=== PATIENT | male | born 1930 | race Hispanic/Latino ===

== ENCOUNTER 2017-08-11 15:18 | Inpatient (IN) | payer BC, MEDICARE ==
--- NOTE | 2017-08-11 16:11 | ED PDOC ---
Arrival/HPI - General Chief Complaint: Weakness/Neurological Deficit Time Seen by Provider: 08/11/17 15:38 Historian: Patient, Family - History of Present Illness Narrative History of Present Illness (Text): 08/11/17 16:07 87-year-old male with a history of hypertension and CHF presents today with generalized weakness, urinary frequency, cough, fevers. Patient was seen in the primary care physician's office today and sent to the emergency room for evaluation. Patient complaining of fevers and chills. States has had cough for 2 months. Family states patient was recently hospitalized last week for cellulitis in the left lower extremity. Patient denies headache. No medications have been taken for fever at home. Complaining of dyspnea on exertion. Symptom Onset: Gradual Symptom Course: Worsening Quality: Aching Past Medical History - Provider Review Nursing Documentation Reviewed: Yes - Travel History Have you recently traveled outside [place] w/in the past 3 mons?: No - Infectious Disease Hx of Infectious Diseases: None - Tetanus Immunization Tetanus Immunization: Unknown - Cardiac Hx Hypertension: Yes - Pulmonary Hx Pneumonia: Yes - Neurological HX Cerebrovascular Accident: Yes - Endocrine/Metabolic Hx Diabetes Mellitus Type 2: Yes - Hematological/Oncological Hx Anemia: Yes - Musculoskeletal/Rheumatological Hx Arthritis: Yes - Gastrointestinal Hx Gastroesophageal Reflux: Yes - Psychiatric Hx Substance Use: No - Surgical History Hx Appendectomy: Yes - Anesthesia Hx Anesthesia Reactions: No Hx Malignant Hyperthermia: No - Suicidal Assessment Feels Threatened In Home Enviroment: No Family/Social History - Physician Review Nursing Documentation Reviewed: Yes Family/Social History: Unknown Family HX Smoking Status: Former Smoker Hx Alcohol Use: No Hx Substance Use: No Allergies/Home Meds Allergies/Adverse Reactions: Allergies No Known Allergies Allergy (Verified 08/11/17 15:34) Home Medications: Home Meds Medication Instructions Recorded Confirmed Unobtainable 08/11/17 08/11/17 Review of Systems - Review of Systems Constitutional: Fatigue, Fevers ENT: Sinus Congestion Respiratory: SOB, Cough Cardiovascular: absent: Chest Pain, Palpitations Gastrointestinal: absent: Abdominal Pain, Nausea, Vomiting Genitourinary Male: Frequency. absent: Hematuria Musculoskeletal: absent: Back Pain, Neck Pain Skin: Cellulitis. absent: Rash Neurological: absent: Headache, Dizziness Physical Exam Vital Signs Reviewed: Yes Vital Signs Temp Pulse Resp BP Pulse Ox 08/11/17 16:36 105 H 183/93 H 98 08/11/17 15:48 101.2 F H 108 H 24 180/94 H 98 08/11/17 15:43 30 H 91 L Temperature: Febrile Blood Pressure: Hypertensive Pulse: Tachycardic Respiratory Rate: Normal Appearance: Positive for: Well-Appearing, Non-Toxic Pain Distress: None Mental Status: Positive for: Alert and Oriented X 3 - Systems Exam Head: Present: Atraumatic Mouth: Present: Dry. No: Drooling Neck: Present: Normal Range of Motion, Trachea Midline. No: Meningeal Signs Respiratory/Chest: Present: Decreased Breath Sounds Cardiovascular: Present: Murmurs, Tachycardic Abdomen: No: Tenderness, Distention, Rebound, Guarding Genitourinary Male: Present: Erythema, Other (there is non tender erythema noted with the scrotum without swelling. + erythema extending to the groin with excoriations within the right inguinal region. chaparoned by dr. rosado). No: Normal External Genitalia, Testicle Tenderness, Testicle Swelling Upper Extremity: Present: Normal Inspection, Normal ROM Lower Extremity: Present: Edema, Normal ROM, Tenderness, Erythema (Left lower leg erythema over anterior aspect of left lower leg. 2+ pitting edema bilaterally) Neurological: Present: GCS=15, Speech Normal Skin: Present: Warm, Dry Psychiatric: Present: Alert, Oriented x 3 Medical Decision Making ED Course and Treatment: 08/11/17 16:13 87-year-old male with generalized weakness fatigue fevers and tachycardia with cough and urinary frequency Tylenol 975 by mouth given for fever CBC: hgb;9.4 CMP: bun;24/ cr: 1.3 BNP: 2270 Troponin: 0.06 EKG shows sinus tachycardia at [address] elevations Chest x-ray: ? right upper lobe infiltrate. Lactate: 1.5 rapid flu: negative UA; negative blood and urine cultures pending 08/11/17 17:23 pt started on vancomycin and zosyn iv for cellulitis of left leg, possible pneumonia pt was evaluated by dr. rosado case discussed with dr. nolen; accepts admission to [facility]; he states patient has lost a lot of weight; he would like to hold of on lasix at this time. impression; fever, cellulitis, pneumonia, elevated bnp, rash, groin admit to tele. dr. nolen - Lab Interpretations Lab Results: 08/11/17 16:15 08/11/17 16:15 Lab Results 08/11/17 17:50: Urine Color Yellow, Urine Appearance Clear, Urine pH 6.0, Ur Specific [place] 1.025, Urine Protein 100 H, Urine Glucose (UA) Negative, Urine Ketones Negative, Urine Blood Negative, Urine Nitrate Negative, Urine Bilirubin Negative, Urine Urobilinogen 0.2, Ur Leukocyte Esterase Negative, Urine RBC Pending, Urine WBC Pending 08/11/17 16:26: Influenza Typ A,B (EIA) Negative for flu a/b 08/11/17 16:15: Sodium 136, Chloride 95 L, Potassium 3.4 L, Carbon Dioxide 30, Anion Gap 14, BUN 24 H, Creatinine 1.3, Est GFR ( Amer) > 60, Est GFR ( Non-Af Amer) 52, Random Glucose 220 H, Calcium 9.4, Phosphorus 2.5, Magnesium 1.7, Total Bilirubin 0.8, AST 33, ALT 38, Alkaline Phosphatase 90, Lactate Dehydrogenase 446, Total Creatine Kinase 64, Troponin I 0.06 D, NT-Pro-B Natriuret Pep 2270 H, Total Protein 8.2, Albumin 4.1, Globulin 4.1, Albumin/ Globulin Ratio 1.0 L 08/11/17 16:15: pO2 43, VBG pH 7.42, VBG pCO2 50.0, VBG HCO3 32.4 H, VBG Total CO2 33.9 H, VBG O2 Sat (Calc) 81.5 H, VBG Base Excess 6.6 H, VBG Potassium 3.4 L , Sodium 136.0, Chloride 97.0 L, Glucose 225 H, Lactate 1.5, FiO2 21.0, Venous Blood Potassium 3.4 L 08/11/17 16:15: PT 14.6 H, INR 1.33 H, APTT 29.0 08/11/17 16:15: WBC 9.0, RBC 4.37, Hgb 9.4 L, Hct 32.7 L, MCV 74.8 L, MCH 21.5 L , MCHC 28.7 L, RDW 21.9 H, Plt Count 356, MPV 10.4, Gran % 83.7 H, Lymph % (Auto ) 6.6 L, [place] % (Auto) 8.7 H, Eos % (Auto) 0.1 L, Baso % (Auto) 0.9, Gran # 7.52 H, Lymph # 0.6 L, [place] # 0.8 H, Eos # 0.0, Baso # 0.08 - RAD Interpretation Radiology Orders: 08/11/17 15:49 CHEST PORTABLE [RAD] Stat - Medication Orders Current Medication Orders: Discontinued Medications Acetaminophen (Tylenol 325mg Tab) 975 mg PO STAT STA Stop: 08/11/17 15:58 Last Admin: 08/11/17 16:20 Dose: 975 mg MAR Pain/Vitals Document 08/11/17 16:20 OCS (Rec: 08/11/17 16:24 OCS [id number]) Pain Reassessment Is This A Pain ReAssessment? Yes Sleep Is patient sleeping during reassessment? No Presence of Pain Presence of Pain Yes Vancomycin HCl (Vancomycin 1gm) 1 gm in 250 mls @ 167 mls/hr IVPB STAT STA PRN Reason: Protocol Stop: 08/11/17 18:01 Piperacillin Sod/Tazobactam Sod (Zosyn 3.375 In Ns 100ml) 100 mls @ 200 mls/hr IVPB STAT STA PRN Reason: Protocol Stop: 08/11/17 17:01 Last Admin: 08/11/17 17:09 Dose: 200 mls/hr eMAR Start Stop Document 08/11/17 17:09 OCS (Rec: 08/11/17 17:11 OCS [id number]) Intravenous Solution Start Date 08/11/17 Start Time 17:11 End Date 08/11/17 End time 17:41 Total Infusion Time 30 Disposition/Present on Arrival - Present on Arrival Any Indicators Present on Arrival: No History of DVT/PE: No History of Uncontrolled Diabetes: No Urinary Catheter: No History of Decub. Ulcer: No History Surgical Site Infection Following: None - Disposition Have Diagnosis and Disposition been Completed?: Yes Diagnosis: Pneumonia, Fever, CHF (congestive heart failure), Rash of groin, Cellulitis, leg Disposition: HOSPITALIZED Disposition Time: 17:45 Patient Plan: Telemetry Patient Problems: Current Active Problems Problem Status Onset CHF (congestive heart failure) Acute Cellulitis, leg Acute Fever Acute Pneumonia Acute Rash of groin Acute Condition: FAIR Discharge Instructions (ExitCare): Heart Failure (ED), Cellulitis (ED) Forms: [employer] (Croatian)
[2017-08-11 16:27] LABS: VENOUS BLOOD GAS BASE EXCESS 6.6 mmol/L (0.0-2.0); VENOUS BLOOD PH 7.42 (7.32-7.43)
[2017-08-11] MEDS ORDERED: Piperacillin/Tazobact 3.375 gm 100 ML IVPB STA (16:32)
[2017-08-11] MEDS ORDERED: Vancomycin 1gm in NS 250ml 1 GM/250 ML BAG IVPB STA (16:32)
[2017-08-11 16:36] LABS: ALKALINE PHOSPHATASE 90 U/L (38-126); ALT/SGPT 38 U/L (7-56); AST/SGOT 33 U/L (17-59); BILIRUBIN,TOTAL 0.8 mg/dL (0.2-1.3); BLOOD UREA NITROGEN 24 mg/dL (7-21); CALCIUM 9.4 mg/dL (8.4-10.5); CARBON DIOXIDE 30 mmol/L (21-33); CHLORIDE 95 mmol/L (98-107); GFR AFRICAN-AMERICAN > 60; GLUCOSE,RANDOM 220 mg/dL (70-110); MAGNESIUM 1.7 mg/dL (1.7-2.2); PHOSPHOROUS 2.5 mg/dL (2.5-4.5); POTASSIUM 3.4 mmol/L (3.6-5.0); SODIUM 136 mmol/L (132-148); TOTAL PROTEIN 8.2 g/dL (5.8-8.3)
[2017-08-11 16:39] LABS: BASO # 0.08 K/mm3 (0.0-2.0); BASO % 0.9 % (0.0-3.0); EOS % 0.1 % (1.5-5.0); GRAN # 7.52 (1.4-6.5); GRAN % 83.7 % (50.0-68.0); HEMATOCRIT 32.7 % (42.0-52.0); LYMPH # 0.6 (1.2-3.4); LYMPH % 6.6 % (22.0-35.0); MEAN CELL VOLUME 74.8 fl (80.0-105.0); MEAN CORPUSCULAR HEMOGLOBIN 21.5 pg (25.0-35.0); MEAN CORPUSCULAR HGB CONC 28.7 g/dl (31.0-37.0); MEAN PLATELET VOLUME 10.4 fl (7.0-11.0); MONO # 0.8 (0.1-0.6); MONO % 8.7 % (1.0-6.0); RED CELL DISTRIBUTION WIDTH 21.9 % (11.5-14.5)
[2017-08-11 16:47] LABS: INR 1.33 (0.93-1.08); TROPONIN I 0.06 ng/mL
--- NOTE | 2017-08-11 17:45 | RAD ---
HISTORY: Sepsis Patient COMPARISON: Chest x-ray performed 01/14/14 TECHNIQUE: Chest, one view. FINDINGS: LUNGS: Medial right upper lobe opacity may reflect consolidation such as pneumonia and/or pleural thickening/ fluid. Correlate clinically. The patient's chin and overlying bony structures as well as possibility of tortuous vasculature limit evaluation of this region. Correlate clinically. No definite pneumothorax . CARDIOVASCULAR: Cardiomegaly. OSSEOUS STRUCTURES: Degenerative changes. VISUALIZED UPPER ABDOMEN: Unremarkable. OTHER FINDINGS: None. IMPRESSION: Medial right upper lobe opacity may reflect consolidation (such as pneumonia) and/or pleural thickening/ fluid. Correlate clinically. The patient's chin and overlying bony structures as well as possibility of tortuous vasculature limits evaluation of this region. Correlate clinically. Recommend follow-up upon completion of treatment for acute symptoms in order to exclude possibility of underlying neoplasm. Cardiomegaly.
[2017-08-11 18:07] LABS: URINE BILIRUBIN NEGATIVE (NEGATIVE); URINE BLOOD NEGATIVE (NEGATIVE); URINE COLOR YELLOW (YELLOW); URINE GLUCOSE (UA) NEGATIVE (NEGATIVE); URINE KETONE NEGATIVE (NEGATIVE); URINE LEUKOCYTE ESTERASE NEGATIVE Leu/uL (NEGATIVE); URINE PROTEIN 100 mg/dL (<30 mg/dL); URINE UROBILINOGEN 0.2 E.U./dL (<1 E.U./dL)
[2017-08-11 18:08] LABS: URINE APPEARANCE CLEAR (CLEAR)
[2017-08-11 18:16] LABS: URINE BACTERIA TRACE (NEG); URINE EPITHELIAL CELLS 0 - 2 /hpf (0-5); URINE RBC 0 - 2 /hpf (0-2)
--- NOTE | 2017-08-11 18:35 | CARD ---
APPROVED REPORT EKG Measurement Heart [id number] <Conclusion> Sinus tachycardia Junctional ST depression, probably normal Borderline ECG
[2017-08-11] MEDS ORDERED: Potassium Chloride 20 mEq ER Tab PO STA (18:53)
[2017-08-11 21:26] VITALS: BMI 27.8
[2017-08-11] MEDS ORDERED: Pneumococcal 23-Valent Vaccine IM ONE (21:28)
[2017-08-11] MEDS ORDERED: Influenza Vaccine 60 mcg/0.5 mL SYR (4YR UP) IM ONE (21:28)
[2017-08-11] MEDS: Insulin Reg-LOW-Coverage SC SCH (22:00)
[2017-08-11] MEDS: Vancomycin 500mg in NS 500 MG/100 ML BAG IVPB SCH (23:07)
[2017-08-12] MEDS: Piperacillin/Tazobact 3.375 gm 100 ML IVPB SCH ×2 (00:13→05:16)
[2017-08-12] MEDS ORDERED: Nitroglycerin 2% Ointment Foilpak UD TOP STA (02:06)
[2017-08-12] MEDS ORDERED: Levalbuterol 1.25 MG/3 ML Inhal Soln UD IH STA (02:09)
--- NOTE | 2017-08-12 02:15 | CP.PCM.PN ---
Subjective - Date & Time of Evaluation Date of Evaluation: 08/12/17 Time of Evaluation: 02:12 - Subjective Subjective: Patient was seen at bedside. BP :229/113, HR 125/min, RR 18/min Temp:98.3*F FSBS 264 mg %, pulse ox 89 % on 2L/min by nasal canula. Complains of feeling hot. Has no other complaints. Has some audible wheezing from distance. Denies chest pain, sob, nausea, sweating ,palpitations. This 87 year old white male was admitted with cough,fever, chills, weakness, urinary frequency, right upper lobe PNA,cellulitits,elevated BNP. Has PMH of COPD, HTN,CHF,DM,HLD, history of smoking for 10 years 30 years ago, 1 PPD. Objective - Vital Signs/Intake and Output Vital Signs (last 24 hours): Temp Pulse Resp BP Pulse Ox 98.2 F 91 H 24 136/74 97 08/11/17 20:54 08/11/17 20:54 08/11/17 20:54 08/11/17 20:54 08/11/17 19:20 Intake and Output: 08/11/17 08/12/17 18:59 06:59 Intake Total 240 Output Total 0 Balance 240 - Medications Medications: Current Medications Furosemide (Lasix) 80 mg IVP STAT STA Stop: 08/12/17 02:07 Vancomycin HCl (Vancomycin 500mg In Ns) 500 mg in 100 mls @ 200 mls/hr IVPB Q12 THOM PRN Reason: Protocol Last Admin: 08/11/17 23:07 Dose: 200 mls/hr Piperacillin Sod/Tazobactam Sod (Zosyn 3.375 In Ns 100ml) 100 mls @ 200 mls/hr IVPB Q6 THOM PRN Reason: Protocol Stop: 08/12/17 06:29 Last Admin: 08/12/17 00:13 Dose: 200 mls/hr Insulin Human Regular (Humulin R Low) 0 units SC ACHS THOM PRN Reason: Protocol Levalbuterol HCl (Xopenex) 1.25 mg IH STAT STA Stop: 08/12/17 02:10 Nitroglycerin (Nitro-Bid 2% Oint) 1 ea TOP STAT STA Stop: 08/12/17 02:07 Sacubitril/Valsartan (Entresto 24 Mg-26 Mg Tablet) 1 each PO BID THOM - Labs Labs: PT 14.6 SECONDS (9.4-12.5) H 08/11/17 16:15 INR 1.33 (0.93-1.08) H 08/11/17 16:15 APTT 29.0 Seconds (25.1-36.5) 08/11/17 16:15 - Constitutional Appears: Well, No Acute Distress - Head Exam Head Exam: NORMAL INSPECTION, NORMOCEPHALIC - Eye Exam Eye Exam: Normal appearance - ENT Exam ENT Exam: Normal Oropharynx - Neck Exam Neck Exam: Normal Inspection - Respiratory Exam Respiratory Exam: Decreased Breath Sounds (Right upper lobe.), Wheezes ( Bilateral.), NORMAL BREATHING PATTERN - Cardiovascular Exam Cardiovascular Exam: Tachycardia, REGULAR RHYTHM, +S1 (Normal.), +S2 (Normal.) - GI/Abdominal Exam GI & Abdominal Exam: Normal Bowel Sounds. absent: Distended, Tenderness - Rectal Exam Rectal Exam: Deferred - Exam Additional comments: Deferred. - Extremities Exam Extremities Exam: Pedal Edema (1+) - Back Exam Back Exam: NORMAL INSPECTION - Neurological Exam Neurological Exam: Alert, Oriented x3 - Psychiatric Exam Psychiatric exam: Normal Affect, Normal Mood - Skin Skin Exam: Warm Assessment and Plan - Assessment and Plan (Free Text) Assessment: Hypoxia. Elevated blood pressure reading. Sinus tachycardia. CHF. Elevated BNP. Anemia. Right upper lobe pna, r/o exacerbation. COPD. HTN. DM. HLD. Hypokalemia. Plan: Increase oxygen to 4L/min by nasal canula. Lasix 80 mg IV stat. Nitropaste 2" to ACW stat. Xopenex 1.25 mg nebulizer treatment stat. CBC,CMP,troponin,mag, phos, EKG, CXR stat. Continue present management. ELG-Sinus tachycardia. 02:49 BP 202/108. HR 120/min. Rx, Lopressor 5 mg IV stat. 02:54-->CXR Pulmonary edema. Placed a call to . 07:09.
[2017-08-12] MEDS ORDERED: Levalbuterol 0.63 MG/3 ML Inhal Soln UD IH PRN (02:32)
[2017-08-12] MEDS ORDERED: Metoprolol 1 mg/ml Inj IVP STA (02:50)
[2017-08-12] MEDS ORDERED: Enoxaparin 40 mg Syringe SC STA (02:52)
[2017-08-12] MEDS ORDERED: Metoprolol 1 mg/ml Inj IVP ONE (02:53)
[2017-08-12 03:05] LABS: BASO # 0.07 K/mm3 (0.0-2.0); BASO % 0.7 % (0.0-3.0); EOS % 0.4 % (1.5-5.0); GRAN # 9.08 (1.4-6.5); GRAN % 84.8 % (50.0-68.0); HEMATOCRIT 33.2 % (42.0-52.0); LYMPH % 8.9 % (22.0-35.0); MEAN CELL VOLUME 74.6 fl (80.0-105.0); MEAN CORPUSCULAR HEMOGLOBIN 21.8 pg (25.0-35.0); MEAN CORPUSCULAR HGB CONC 29.2 g/dl (31.0-37.0); MEAN PLATELET VOLUME 10.1 fl (7.0-11.0); MONO # 0.6 (0.1-0.6); MONO % 5.2 % (1.0-6.0); RED CELL DISTRIBUTION WIDTH 21.9 % (11.5-14.5); WHITE BLOOD COUNT 10.7 10^3/ul (4.5-11.0)
[2017-08-12 03:11] LABS: CALCIUM 9.1 mg/dL (8.4-10.5); MAGNESIUM 1.7 mg/dL (1.7-2.2); PHOSPHOROUS 3.1 mg/dL (2.5-4.5); POTASSIUM 3.4 mmol/L (3.6-5.0); TOTAL PROTEIN 8.2 g/dL (5.8-8.3)
[2017-08-12 03:12] LABS: BILIRUBIN,TOTAL 0.9 mg/dL (0.2-1.3)
[2017-08-12 03:13] LABS: TROPONIN I 0.05 ng/mL
--- NOTE | 2017-08-12 03:21 | HP ---
HISTORY OF PRESENT ILLNESS: An 87-year-old white male, recently complaining of frequent urination, severe fatigue, swelling of the legs, unable to walk, was seen at the office today, found to have swelling of the legs, marked drop in weight from 194 to 178, decreased breath sounds with elevated blood pressure and systolic ejection murmur at the left sternal border, and positive S3, positive S4, temperature of 101.2 rectally, pulse of 105, blood pressure 183/93, normal white count. Hemoglobin 9.4 which is unchanged, potassium 3.4. BUN and creatinine are stable. The patient was seen in the office, transferred to the ER and being admitted to my service. PHYSICAL EXAMINATION: GENERAL: The patient is awake and alert. He is oriented to person, place, and time. EXTREMITIES: He does have some 2+ edema of the pretibial region on both feet. There are also some cellulitic changes on the left lower extremity. CHEST: Chest has decreased breath sounds, but clear. HEART: Sinus tachycardia, positive S3 and positive S4 and systolic ejection murmur. ABDOMEN: Benign. IMPRESSION: An 87-year-old white male, presenting with sepsis, possible urosepsis, possible cellulitis, mild congestive heart failure, BMP over 2200, hypokalemia, severe fatigue, and weakness. Nimesh Cabello MD
[2017-08-12] MEDS ORDERED: Potassium Chloride 20 mEq ER Tab PO STA (03:44)
[2017-08-12] MEDS: Insulin Reg-LOW-Coverage SC SCH ×4 (08:19→21:52)
--- NOTE | 2017-08-12 09:09 | RAD ---
HISTORY: hypoxia, wheezing COMPARISON: 08/11/2017 FINDINGS: LUNGS: No active pulmonary disease. PLEURA: No significant pleural effusion identified, no pneumothorax apparent. CARDIOVASCULAR: The heart is normal in size. There is moderate vascular congestion OSSEOUS STRUCTURES: No significant abnormalities. VISUALIZED UPPER ABDOMEN: Normal. OTHER FINDINGS: None. IMPRESSION: No active disease.
[2017-08-12] MEDS: SACUBITRIL 24mg/VALSARTAN 26mg tab PO SCH (11:00)
[2017-08-12] MEDS: Vancomycin 500mg in NS 500 MG/100 ML BAG IVPB SCH ×2 (11:00→21:55)
[2017-08-12] MEDS ORDERED: Nystatin 100,000 Units/gm Topical Pow(15 gm) TOP SCH (12:15)
--- NOTE | 2017-08-12 16:19 | CARD ---
APPROVED REPORT EKG Measurement Heart [id number] <Conclusion> Sinus tachycardia Possible Left atrial enlargement Borderline ECG
--- NOTE | 2017-08-12 21:32 | PN ---
DATE: SUBJECTIVE: The patient is an 87-year-old white male admitted to the hospital with some severe weakness, found to have bladder retention with possible urosepsis, elevated white count, temperature to 102. The patient is afebrile today. He is resting more comfortably, he has less shortness of breath. His white count is 10.7. Temperature is 97.2, blood pressure is 163/92. The patient is on Entresto. We will add Coreg at bedtime for blood pressure control and control heart failure. The patient has no peripheral edema today. The cellulitis of the left lower extremity is improved. The patient is having less urinary symptoms. PHYSICAL EXAMINATION VITAL SIGNS: Stable. CHEST: Clear to auscultation and percussion. Repeat chest x-ray is normal except for vascular congestion. HEART: Regular sinus rhythm. ABDOMEN: Soft. IMPRESSION: Urinary tract infection, tachyarrhythmia, hypertension, and severe weakness and shortness of breath in an 87-year-old white male with resolving cellulitis. Nimesh Cabello MD
[2017-08-13] MEDS: Insulin Reg-LOW-Coverage SC SCH ×4 (08:35→22:11)
[2017-08-13] MEDS: SACUBITRIL 24mg/VALSARTAN 26mg tab PO SCH ×2 (10:00→17:22)
[2017-08-13] MEDS: Vancomycin 500mg in NS 500 MG/100 ML BAG IVPB SCH ×2 (10:35→22:11)
[2017-08-13] MEDS: Nystatin 100,000 Units/gm Topical Pow(15 gm) TOP SCH (10:35)
[2017-08-13] MEDS: Enoxaparin 40 mg Syringe SC SCH (10:36)
--- NOTE | 2017-08-13 12:29 | PN ---
DATE: SUBJECTIVE: An 87-year-old white male admitted to hospital with urinary tract infection, severe weakness, fatigue, congestive heart failure, shortness of breath. The patient is stable today. He is afebrile. He is on vancomycin for bladder infection. Blood sugar is 248. Potassium is 4.4. White count is 10.7. PHYSICAL EXAMINATION: VITAL SIGNS: Temperature is 98.1. Patient's blood pressure is 169/87, which is improved. ASSESSMENT AND PLAN: The patient is on Entresto and Coreg, and vancomycin. Plan is to get out of the bed, ambulate, physical therapy, and continue IV antibiotics. Nimesh Cabello MD
[2017-08-14] MEDS: Insulin Reg-LOW-Coverage SC SCH ×4 (08:29→22:05)
[2017-08-14] MEDS: Nystatin 100,000 Units/gm Topical Pow(15 gm) TOP SCH (10:13)
[2017-08-14] MEDS: SACUBITRIL 24mg/VALSARTAN 26mg tab PO SCH (10:15)
[2017-08-14] MEDS: Enoxaparin 40 mg Syringe SC SCH (10:15)
[2017-08-14] MEDS: Vancomycin 500mg in NS 500 MG/100 ML BAG IVPB SCH ×2 (11:04→22:05)
[2017-08-14] MEDS: SACUBITRIL 49mg/VALSARTAN 51mg tab PO SCH (18:36)
--- NOTE | 2017-08-14 19:06 | PN ---
DATE: SUBJECTIVE: An 87-year-old male admitted to the hospital with severe weakness, urinary tract infection, fever, chills, mild congestive heart failure. Patient is responding to IV antibiotics. PHYSICAL EXAMINATION: Unchanged. VITAL SIGNS: He is afebrile today. Blood pressure is 168/74. CHEST: Clear to auscultation. HEART: Regular sinus rhythm. EXTREMITIES: Without cyanosis, clubbing, or edema. ASSESSMENT AND PLAN: He has resolution of left lower cellulitis. Also has minimal urinary tract infection. He still has a Mohan catheter. Consult Dr. Hernandez, his urologist. Continue IV antibiotics and start physical therapy and occupational therapy. Nimesh Cabello MD
[2017-08-15] MEDS: Insulin Reg-LOW-Coverage SC SCH ×4 (08:23→22:08)
[2017-08-15] MEDS: Vancomycin 500mg in NS 500 MG/100 ML BAG IVPB SCH ×2 (10:36→21:54)
[2017-08-15] MEDS: Enoxaparin 40 mg Syringe SC SCH (10:41)
[2017-08-15] MEDS: SACUBITRIL 49mg/VALSARTAN 51mg tab PO SCH ×2 (11:18→19:04)
[2017-08-15] MEDS: Nystatin 100,000 Units/gm Topical Pow(15 gm) TOP SCH (11:18)
--- NOTE | 2017-08-15 13:11 | PN ---
DATE: SUBJECTIVE: An 87-year-old white male admitted to the hospital with severe weakness, unable to walk, and urinary tract infection. Indwelling Mohan catheter the patient had before, we removed today. PHYSICAL EXAMINATION: VITAL SIGNS: He is afebrile. Vital signs are stable. ASSESSMENT AND PLAN: He did some physical therapy and occupational therapy yesterday. He is able to sit in chair and walk in karimi. We will evaluate him for possible Transitional Care Unit. He also has congestive heart failure. He is being treated with Entresto. Blood pressure down to 147/63, heart rate is 73 and temperature is 97.5. Nimesh Cabello MD
[2017-08-16] MEDS: Insulin Reg-LOW-Coverage SC SCH ×4 (07:30→22:03)
--- NOTE | 2017-08-16 08:38 | CON ---
DATE: 08/15/2017 CHIEF COMPLAINT: Weakness, urinary frequency. HISTORY OF PRESENT ILLNESS: This is an 87-year-old male seen in [facility]. The patient and his are present. Both are giving the history which appears reliable. The patient's reports that the patient was recently in [facility] with weakness, some shortness of breath and he was treated and then sent home. At home, the patient has been having urinary frequency. He denies any dysuria. He does report a history of BPH and has been maintained on Flomax. He also reportedly was taking medication for overactive bladder likely Myrbetriq; however, his is unsure of the name. Regardless, the patient reports the day prior to admission, he was having some difficulties voiding. He denied any dysuria or gross hematuria, but was having increased frequency and urgency, voided multiple times the night before admission. The patient was having profound weakness and difficulty ambulating. He fell one time while trying to go to the bathroom, but was able to get up and alert his . In general, he was not feeling well with some shortness of breath as well and they subsequently came to the hospital where he was admitted with congestive heart failure, possible sepsis. A consultation was requested regarding the above. PAST MEDICAL HISTORY: Significant for congestive heart failure, BPH, arthritis, lower extremity weakness. MEDICATIONS: Include Coreg, Entresto, insulin coverage, Lovenox, nystatin, vancomycin and Xopenex. ALLERGIES: NO KNOWN DRUG ALLERGIES. FAMILY HISTORY: Noncontributory for this event. SOCIAL HISTORY: Denies smoking or EtOH use. REVIEW OF SYSTEMS: Positive for lower extremity swelling. Positive for difficulty ambulating and weakness. Denies any current chest pain or palpitations. Does have some shortness of breath. Denies current cough. The patient had a Mohan catheter in place which has now been removed. Urologic system as per history of present illness. For musculoskeletal, does report joint pain, lower extremity swelling and difficulty ambulating. Other systems are negative. PHYSICAL EXAMINATION: GENERAL: The patient is awake, alert and answering questions. He is in no acute distress. He is afebrile. VITAL SIGNS: Temperature 97.8, pulse of 62, BP 163/79, respirations 20. NECK: Supple. There is no adenopathy. CHEST: There is a slightly increased inspiratory effort. CARDIAC: Shows positive S1, S2. ABDOMEN: There is moderate peripheral edema noted on abdominal exam. Abdomen is soft, nontender, nondistended. There is no hepatosplenomegaly. There is no costovertebral angle tenderness. : Phallus is normal. Mohan catheter has been removed. Scrotum has mild scrotal edema. Testes bilaterally descended, nontender, no masses. Epididymis are normal. LABORATORY DATA: WBC count 10.7, BUN of 24 with a creatinine of 1.5 from 08/12/2017. BNP on 08/11/2017 is 2270. Urinalysis showed 0-2 RBC, 103 WBC, negative nitrates from 08/11/2017. RADIOLOGIC EXAM: No pertinent urologic imaging was done. IMPRESSION AND PLAN: This is an 87-year-old male with congestive heart failure. Urologically, Mohan catheter has been removed for a voiding trial. My recommendation would be to restart the patient on tamsulosin 0.4 mg once daily as he has been on this medication at home. Given the possible urinary retention, I would hold off on any medications for overactive bladder. If he was taking Myrbetriq at home, I would hold this at this point. Continue treatment of his profound weakness, difficulty ambulating and cardiac issues. Plan a bladder scan for postvoid residual. The patient should follow up in our office after discharge for further evaluation of his voiding symptoms. Thank you for allowing us to participate the care of this patient. We will follow him with you. Niko Reynaga MD
[2017-08-16] MEDS: Vancomycin 500mg in NS 500 MG/100 ML BAG IVPB SCH ×2 (10:02→22:03)
[2017-08-16] MEDS: Enoxaparin 40 mg Syringe SC SCH (10:08)
[2017-08-16] MEDS: SACUBITRIL 49mg/VALSARTAN 51mg tab PO SCH ×2 (10:28→17:13)
[2017-08-16] MEDS: Nystatin 100,000 Units/gm Topical Pow(15 gm) TOP SCH (10:28)
--- NOTE | 2017-08-16 15:21 | PN ---
DATE: 08/16/2017 SUBJECTIVE: An 87-year-old male admitted to the hospital with urinary tract infection, severe weakness, congestive heart failure. The patient is improved. His Mohan was removed. He is afebrile. Vital signs are stable. Blood pressure is 150/76. He is on Entresto and vancomycin. He is doing physical therapy and occupational therapy. We are attempting to transfer him to TCU for continue physical therapy. continue. OBJECTIVE: VITAL SIGNS: Stable. CHEST: Clear to auscultation and percussion. HEART: Regular sinus rhythm. Nimesh Cabello MD
[2017-08-17] MEDS: Insulin Reg-LOW-Coverage SC SCH ×4 (08:26→21:56)
[2017-08-17] MEDS: Enoxaparin 40 mg Syringe SC SCH (09:39)
[2017-08-17] MEDS: SACUBITRIL 49mg/VALSARTAN 51mg tab PO SCH ×2 (09:41→17:29)
[2017-08-17] MEDS: Nystatin 100,000 Units/gm Topical Pow(15 gm) TOP SCH (09:43)
--- NOTE | 2017-08-17 10:50 | PN ---
DATE: SUBJECTIVE: An 87-year-old white male admitted to the hospital with mild congestive heart failure, urosepsis, urinary incontinence, and weakness. The patient is doing better. Doing physical therapy and occupational therapy. Mohan catheter is out. He is tolerating medication well. PHYSICAL EXAMINATION: VITAL SIGNS: Stable. LABORATORY DATA: Potassium 3.4. Sugar is still elevated at 248, but he is on sugar control. PLAN: To continue physical therapy and occupational therapy. TCU evaluation. Control blood pressure and blood sugar and switch to PO antibiotics. Nmiesh Cabello MD
[2017-08-18 06:09] VITALS: O2SAT 98
[2017-08-18] MEDS: Insulin Reg-LOW-Coverage SC SCH ×2 (08:31→11:51)
[2017-08-18] MEDS: Enoxaparin 40 mg Syringe SC SCH (09:28)
[2017-08-18] MEDS: SACUBITRIL 49mg/VALSARTAN 51mg tab PO SCH (09:29)
[2017-08-18] MEDS: Nystatin 100,000 Units/gm Topical Pow(15 gm) TOP SCH (09:31)
[2017-08-18 12:19] VITALS: BP 161/89; PULSE 63; RESP 18; TEMP 97.9
--- NOTE | 2017-08-19 14:26 | PQF CHF ---
08/19/17 Dr. Cabello, You document CHF in your notes. Please indicate type and severity, as listed below. Thank you. Clarification of your documentation is requested to better reflect the severity of illness and intensity of treatment of your patient. Indicators present [] Diagnosis of CHF and/or history of CHF [] BNP > 200 [] Imaging Finding of Pulmonary Edema /Pleural Effusions [] Fluid/Volume Overload [] Pitting edema [] Ejection Fraction < 40% (Indicative of Systolic Heart Failure) [] Ejection Fraction > 40% (Indicative of Diastolic Heart Failure) [] Dyspnea / Orthopenea / Paroxysmal Nocturnal Dyspnea [] Other: Location in the medical record that reflects the above clinical findings: [] Treatment Provided: [] PHYSICIAN'S RESPONSE Based on your medical judgment of the clinical indicators outlined above, are you treating this patient for a known or suspected: [] Acute CHF [] Systolic [] Diastolic [] Combined [] Chronic CHF [] Systolic [] Diastolic [] Combined [] Acute on Chronic CHF []Systolic [] Diastolic [] Combined [] CHF due hypertension [] Acute systolic []Chronic systolic [] Acute/ chronic systolic [] Other, please indicate: [] [] If Unable to Determine, please check the box, sign and date. Present On Admission (POA) Indicator: [] Present at the time of admission [] Not present at the time of admission [] Clinically Undetermined In responding to this query, please exercise your independent professional judgment. The fact that a question is asked does not imply that any particular answer is desired or expected. Thank you for your clarification on this documentation. If you have any questions please call:[ ] * Thank you, [ ] [employer] ST[employer]EN
--- NOTE | 2017-08-20 05:20 | DS ---
HISTORY OF PRESENT ILLNESS: Sherif Oconnor is an 87-year-old white male. The patient was admitted with generalized weakness, congestive heart failure, hypertension, and urinary tract infection. The patient was treated with IV antibiotics, was treated with Entresto for his heart failure, and physical therapy, occupational therapy. The patient did improve markedly, he also had a cellulitis of the left lower extremity, which has resolved, and the patient is discharged home. He is afebrile. Vital signs are stable. He could be followed as an outpatient. He is also on Flomax. He was seen in consultation by Dr. Reynaga for Urology. The patient will be followed as an outpatient. FINAL DISCHARGE DIAGNOSES: The patient will be congestive heart failure, acute systolic heart failure, urinary tract infection, generalized weakness, and hypertension. Nimesh Cabello MD
== END 2017-08-18 14:28 | disposition home or self-care (01) | DRG 871 ==
LOC: ED 15:18 → ERH 17:52 → 3RSO 20:05
PROVIDERS: ADMIT Internal Medicine; ATTEND Internal Medicine
DX: A41.9 Sepsis, unspecified organism (principal); J18.9 Pneumonia, unspecified organism; I50.21 Acute systolic (congestive) heart failure; J44.0 Chronic obstructive pulmonary disease with (acute) lower respiratory infection; L03.116 Cellulitis of left lower limb; I11.0 Hypertensive heart disease with heart failure; I50.9 Heart failure, unspecified; D64.9 Anemia, unspecified; E11.9 Type 2 diabetes mellitus without complications; E78.5 Hyperlipidemia, unspecified; N39.0 Urinary tract infection, site not specified; E87.6 Hypokalemia; K21.9 Gastro-esophageal reflux disease without esophagitis; R09.02 Hypoxemia; R32 Unspecified urinary incontinence; Z86.73 Personal history of transient ischemic attack (TIA), and cerebral infarction without residual deficits; Z87.01 Personal history of pneumonia (recurrent); Z87.891 Personal history of nicotine dependence; Z90.49 Acquired absence of other specified parts of digestive tract; M19.90 Unspecified osteoarthritis, unspecified site; R40.2412 Glasgow coma scale score 13-15, at arrival to emergency department; R21 Rash and other nonspecific skin eruption; N40.0 Benign prostatic hyperplasia without lower urinary tract symptoms; N32.81 Overactive bladder